=== PATIENT | male | born 1980 | race African-American/Black ===

== ENCOUNTER 2017-04-29 08:25 | Emergency (ER) | payer SELFPAY ==
[~2017-04-29] VITALS: Ht 182.9 cm; Wt 111.1 kg
[2017-04-29 08:30] VITALS: BP 189/106
[2017-04-29] MEDS ORDERED: IBUP-1060 PO (08:38)
[2017-04-29] MEDS ORDERED: HYDR25TA9 PO (08:38)
[2017-04-29] MEDS ORDERED: PENICILLIN G BENZATHINE LA 1,200,000 UNIT/2 ML DISP.SYRIN. IM ONE (08:45)
--- NOTE | 2017-04-29 08:47 | PHYS DOC ---
Past Medical History Past Medical History: Hypertension Past Surgical History: Other Additional Past Surgical Histo: hernia repair Alcohol Use: Occasionally Drug Use: Marijuana Adult General Chief Complaint Chief Complaint: SORE THROAT HPI HPI Patient is a 36 year old male who presents with sore throat. No known fevers or cough, reports pain with swallowing. no known sick contacts. Pt admits to being noncompliant with his blood pressure, HCTZ, for several months. No complaints with regards to elevated blood pressure Review of Systems Review of Systems Constitutional: Denies fever or chills [] Eyes: Denies change in visual acuity, redness, or eye pain [] HENT: Denies nasal congestion Respiratory: Denies cough or shortness of breath [] Cardiovascular: denies chest pain GI: Denies abdominal pain, nausea, vomiting, bloody stools or diarrhea [] : Denies dysuria or hematuria [] Musculoskeletal: Denies back pain or joint pain [] Integument: Denies rash or skin lesions [] Neurologic: Denies headache, focal weakness or sensory changes [] Current Medications Current Medications Current Medications Medications (Trade) Dose Ordered Sig/Alfred Start Time Stop Time Status Last Admin Dose Admin Penicillin G Benzathine (Bicillin L-A) 1,200,000 unit 1X ONCE 04/29/17 08:45 04/29/17 08:46 Allergies Allergies Allergies Coded Allergies Type Severity Reaction Last Updated Verified No Known Drug Allergies 04/29/17 No Physical Exam Physical Exam Constitutional: Well developed, well nourished, no acute distress, non-toxic appearance. [] HENT: Normocephalic, atraumatic, bilateral external ears normal, oropharynx moist, bilateral tonsillar enlargement with exudate and erythema, uvula rises midline, no trismus Eyes: PERRLA, EOMI, conjunctiva normal, no discharge. [] Neck: Normal range of motion, mild bilateral cervical LAD Cardiovascular:Heart rate regular rhythm, no murmur [] Lungs & Thorax: Bilateral breath sounds clear to auscultation [] Extremities: No tenderness, no cyanosis, no clubbing, ROM intact, no edema. [] Neurologic: Alert and oriented X 3, normal motor function, normal sensory function, no focal deficits noted. [] Psychologic: Affect normal, judgement normal, mood normal. [] Current Patient Data Vital Signs Vital Signs Date Time Temp Pulse Resp B/P (MAP) Pulse Ox O2 Delivery O2 Flow Rate FiO2 04/29/17 08:30 98.8 64 18 98 Room Air 98.8 EKG EKG [] Radiology/Procedures Radiology/Procedures [] Course & Med Decision Making Course & Med Decision Making Pertinent Labs and Imaging studies reviewed. (See chart for details) pt given bicillin IM, refilled RX for HCTZ and stressed need for f/u. Referral sheets given and pt counseled on treatments and return precautions. Dragon Disclaimer Dragon Disclaimer This electronic medical record was generated, in whole or in part, using a voice recognition dictation system. Departure Departure Impression: Primary Impression: Strep throat Additional Impression: Elevated blood pressure reading Disposition: HOME, SELF-CARE Condition: STABLE Patient Instructions: Strep Throat, [id number], Form - Excuse from Work, School, or Physical Activity, Hypertension Scripts Hydrochlorothiazide (HYDROCHLOROTHIAZIDE TABLET ) 25 Mg Tablet 1 TAB PO DAILY, #30 TAB 0 Refills Prov: BURAK LOAIZA MD 04/29/17 Ibuprofen (IBUPROFEN) 800 Mg Tablet 800 MG PO PRN TID Y for PAIN, #20 TAB take with food or milk to avoid upsetting stomach Prov: BURAK LOAIZA MD 04/29/17 Problem Qualifiers BURAK LOAIZA MD Apr 29, 2017 08:47
== END 2017-04-29 09:10 | disposition home or self-care (01) ==
LOC: ER 08:25
DX: J02.0 Streptococcal pharyngitis (principal); I10 Essential (primary) hypertension; Z91.19 Patient's noncompliance with other medical treatment and regimen; F12.10 Cannabis abuse, uncomplicated; Z98.890 Other specified postprocedural states
CPT/HCPCS: 96372; 99283; J0561

== ENCOUNTER 2018-07-16 11:05 | Emergency (ER) | payer SELFPAY ==
[~2018-07-16] VITALS: Ht 182.9 cm; Wt 113.4 kg
[~2018-07-16 11:05] MED LIST: HYDR25TA9 PO; IBUP-1060 PO
[2018-07-16 11:20] VITALS: BP 186/104
[2018-07-16] MEDS ORDERED: DIPHTH,PERTUSS(ACELL),TET TOX 0.5 ML DISP.SYRIN. VAX IM ONE (12:15)
[2018-07-16] MEDS ORDERED: LIDOCAINE 1% PF 2 ML VIAL. INJ ONE (12:15)
--- NOTE | 2018-07-16 13:11 | PHYS DOC ---
Past Medical History Past Medical History: Hypertension Past Surgical History: Other Additional Past Surgical Histo: hernia repair Alcohol Use: Occasionally Drug Use: Marijuana Adult General Chief Complaint Chief Complaint: LACERATION/AVULSION HPI HPI Patient is a 38 year old male who presents to the ER with a complaint of R hand laceration after cutting his hand on a piece of glass while washing dishes. He denies any numbness, tingling, loss of sensation, or limited ROM. Currently he rates his pain as a 5 out of 10 on the pain scale. He did not take anything for relief of his pain prior to arrival. Review of Systems Review of Systems Constitutional: Denies fever or chills [] Musculoskeletal: Denies back pain or joint pain [] Integument: Reports laceration to R hand from broken glass. Neurologic: Denies focal weakness or sensory changes [] All other systems were reviewed and found to be within normal limits, except as documented in this note. Current Medications Current Medications Current Medications Medications (Trade) Dose Ordered Sig/Alfred Start Time Stop Time Status Last Admin Dose Admin Diphtheria/ Tetanus/Acell Pertussis (Boostrix) 0.5 ml ONCE ONCE 07/16/18 12:15 07/16/18 12:16 DC 07/16/18 12:22 0.5 ML Lidocaine HCl (Xylocaine-Mpf 1% 2ml Vial) 4 ml 1X ONCE 07/16/18 12:15 07/16/18 12:16 DC Allergies Allergies Allergies Coded Allergies Type Severity Reaction Last Updated Verified No Known Drug Allergies 07/16/18 No Physical Exam Physical Exam Constitutional: Well developed, well nourished, no acute distress, non-toxic appearance. [] HENT: Normocephalic, atraumatic, bilateral external ears normal, nose normal. [] Eyes: PERRLA, conjunctiva normal, no discharge. [] Skin: Warm, dry, no erythema, no rash; 3 cm laceration noted to posterior surface of right 2nd digit. [] Extremities: No tenderness, no cyanosis, no clubbing, ROM intact, no edema. [] Neurologic: Alert and oriented X 3, normal motor function, normal sensory function, no focal deficits noted. [] Psychologic: Affect normal, judgement normal, mood normal. [] Current Patient Data Vital Signs Vital Signs Date Time Temp Pulse Resp B/P (MAP) Pulse Ox O2 Delivery O2 Flow Rate FiO2 07/16/18 11:20 98.2 72 16 186/104 (131) 97 Room Air 98.2 EKG EKG [] Radiology/Procedures Radiology/Procedures [] Course & Med Decision Making Course & Med Decision Making Pertinent Labs and Imaging studies reviewed. (See chart for details) [] Dragon Disclaimer Dragon Disclaimer This electronic medical record was generated, in whole or in part, using a voice recognition dictation system. Departure Departure Impression: Primary Impression: Laceration of index finger without foreign body without damage to nail Disposition: HOME, SELF-CARE Condition: STABLE Referrals: NON,STAFF (PCP) Patient Instructions: Laceration Care, Adult, [id number] Additional Instructions: Keep the area clean and dry. Leave the bandage that was placed in the ER on for the next 24 hours. Then change the bandage twice daily and as needed. Wear the aluminium finger splint until sutures are removed in 10 days. Follow up with your primary care doctor or return to the ER for suture removal. May take tylenol or ibuprofen as needed for pain. Laceration/Wound Repair Laceration/Wound Repair : Wound Location: upper extremity (2nd digit of right hand) Wound's Depth, Shape: superficial Wound Length (cm): 3 Wound Explored: no foreign body removed Irrigated w/ Saline (ccs): 50 Betadine Prep?: Yes Anesthesia: 1% Lidocaine Volume Anesthetic (ccs): 4 Wound Debrided: moderate Wound Repaired With: sutures Suture Size/Type: 4:0 Number of Sutures: 9 Layer Closure?: No Sterile Dressing Applied?: No Splint Applied?: Yes (aluminum finger splint) Sling Applied?: No Problem Qualifiers Primary Impression: Laceration of index finger without foreign body without damage to nail Encounter type: initial encounter Laterality: right Qualified Codes: S61.210A - Laceration without foreign body of right index finger without damage to nail, initial encounter LUTHER MENA SEAMAN Jul 16, 2018 13:11
== END 2018-07-16 13:18 | disposition home or self-care (01) ==
LOC: ER 11:05
DX: S61.210A Laceration without foreign body of right index finger without damage to nail, initial encounter (principal); I10 Essential (primary) hypertension; W25.XXXA Contact with sharp glass, initial encounter; Y93.G1 Activity, food preparation and clean up; Y92.9 Unspecified place or not applicable; Y99.8 Other external cause status
CPT/HCPCS: 12002; 90471; 90715; 99283

== ENCOUNTER 2018-07-26 11:24 | Emergency (ER) | payer SELFPAY ==
[~2018-07-26] VITALS: Ht 182.9 cm; Wt 113.4 kg
[2018-07-26 11:45] VITALS: BP 188/110
--- NOTE | 2018-07-26 12:02 | PHYS DOC ---
Past Medical History Past Medical History: Hypertension Past Surgical History: Other Additional Past Surgical Histo: hernia repair Alcohol Use: Occasionally Drug Use: Marijuana Adult General Chief Complaint Chief Complaint: SUTURE/STAPLE REMOVAL HPI HPI Patient is a 38 year old male who presents for suture removal from the right index finger, sutures have been in for 10 days. Patient denies any issues with the wound healing. Review of Systems Review of Systems Constitutional: Denies fever or chills [] Musculoskeletal: Denies back pain or joint pain [] Integument: suture removal from the right index finger Neurologic: Denies headache, focal weakness or sensory changes [] All other systems were reviewed and found to be within normal limits, except as documented in this note. Allergies Allergies Allergies Coded Allergies Type Severity Reaction Last Updated Verified No Known Drug Allergies 07/26/18 No Physical Exam Physical Exam Constitutional: Well developed, well nourished, no acute distress, non-toxic appearance. [] Skin: Warm, dry, right index finger proximal and dorsal aspect with a well- healed approximated laceration with 9 interrupted sutures, no signs of infection to the area. Back: No tenderness, no CVA tenderness. [] Extremities: No tenderness, no cyanosis, no clubbing, ROM intact, no edema. [] Neurologic: Alert and oriented X 3, normal motor function, normal sensory function, no focal deficits noted. [] Psychologic: Affect normal, judgement normal, mood normal. [] Current Patient Data Vital Signs Vital Signs Date Time Temp Pulse Resp B/P (MAP) Pulse Ox O2 Delivery O2 Flow Rate FiO2 07/26/18 11:45 98.8 64 18 188/110 (136) 95 Room Air 98.8 EKG EKG [] Radiology/Procedures Radiology/Procedures [] Course & Med Decision Making Course & Med Decision Making Pertinent Labs and Imaging studies reviewed. (See chart for details) 9 sutures were removed from patient's laceration site. Laceration site is well approximated, no signs of infection. Return precautions provided. Dragon Disclaimer Dragon Disclaimer This electronic medical record was generated, in whole or in part, using a voice recognition dictation system. Departure Departure Impression: Primary Impression: Visit for suture removal Disposition: 01 HOME, SELF-CARE Condition: STABLE Referrals: NO PCP (PCP) follow up with your doctor in one week as needed Patient Instructions: Suture Removal-Brief Additional Instructions: We removed stitches from your laceration site, keep it clean and dry. Follow-up with your doctor as needed. ENRIQUE BAIG APRN Jul 26, 2018 12:02
== END 2018-07-26 12:13 | disposition home or self-care (01) ==
LOC: ER 11:24
DX: S61.210D Laceration without foreign body of right index finger without damage to nail, subsequent encounter (principal); I10 Essential (primary) hypertension; X58.XXXD Exposure to other specified factors, subsequent encounter
CPT/HCPCS: 99281

== ENCOUNTER 2018-11-25 10:50 | Emergency (ER) | payer SELFPAY ==
[~2018-11-25] VITALS: Ht 182.9 cm; Wt 111.1 kg
[~2018-11-25 10:50] MED LIST changes: +HYDR-2145 PO; -HYDR25TA9 PO
[2018-11-25 11:35] VITALS: BP 172/102
[2018-11-25] MEDS ORDERED: PENICILLIN G BENZATHINE LA 1,200,000 UNIT/2 ML DISP.SYRIN. IM ONE (12:00)
--- NOTE | 2018-11-25 12:28 | PHYS DOC ---
Past Medical History Past Medical History: Hypertension Past Surgical History: Other Additional Past Surgical Histo: hernia repair Alcohol Use: Occasionally Drug Use: Marijuana Adult General Chief Complaint Chief Complaint: SORE THROAT HPI HPI Patient is a 38 year old [f__sex] who presents with [] Review of Systems Review of Systems Constitutional: Denies fever or chills [] Eyes: Denies change in visual acuity, redness, or eye pain [] HENT: Denies nasal congestion or sore throat [] Respiratory: Denies cough or shortness of breath [] Cardiovascular: No additional information not addressed in HPI [] GI: Denies abdominal pain, nausea, vomiting, bloody stools or diarrhea [] : Denies dysuria or hematuria [] Musculoskeletal: Denies back pain or joint pain [] Integument: Denies rash or skin lesions [] Neurologic: Denies headache, focal weakness or sensory changes [] Endocrine: Denies polyuria or polydipsia [] All other systems were reviewed and found to be within normal limits, except as documented in this note. Current Medications Current Medications Current Medications Medications (Trade) Dose Ordered Sig/Alfred Start Time Stop Time Status Last Admin Dose Admin Penicillin G Benzathine (Bicillin L-A) 1,200,000 unit 1X ONCE 11/25/18 12:00 11/25/18 12:01 DC 11/25/18 12:15 1,200,000 UNIT Allergies Allergies Allergies Coded Allergies Type Severity Reaction Last Updated Verified No Known Drug Allergies 07/26/18 No Physical Exam Physical Exam Constitutional: Well developed, well nourished, no acute distress, non-toxic appearance. [] HENT: Normocephalic, atraumatic, bilateral external ears normal, oropharynx moist, no oral exudates, nose normal. [] Eyes: PERRLA, EOMI, conjunctiva normal, no discharge. [] Neck: Normal range of motion, no tenderness, supple, no stridor. [] Cardiovascular:Heart rate regular rhythm, no murmur [] Lungs & Thorax: Bilateral breath sounds clear to auscultation [] Abdomen: Bowel sounds normal, soft, no tenderness, no masses, no pulsatile masses. [] Skin: Warm, dry, no erythema, no rash. [] Back: No tenderness, no CVA tenderness. [] Extremities: No tenderness, no cyanosis, no clubbing, ROM intact, no edema. [] Neurologic: Alert and oriented X 3, normal motor function, normal sensory function, no focal deficits noted. [] Psychologic: Affect normal, judgement normal, mood normal. [] Current Patient Data Vital Signs Vital Signs Date Time Temp Pulse Resp B/P (MAP) Pulse Ox O2 Delivery O2 Flow Rate FiO2 11/25/18 11:35 100.7 81 20 172/102 (125) 98 Room Air 100.7 EKG EKG [] Radiology/Procedures Radiology/Procedures [] Course & Med Decision Making Course & Med Decision Making Pertinent Labs and Imaging studies reviewed. (See chart for details) [] Dragon Disclaimer Dragon Disclaimer This electronic medical record was generated, in whole or in part, using a voice recognition dictation system. Departure Departure Impression: Primary Impression: Pharyngitis Disposition: 01 HOME, SELF-CARE Condition: STABLE Referrals: NO PCP (PCP) Patient Instructions: Sore Throat Additional Instructions: You received a shot of penicillin in the emergency department. This should clear your infection. You may use [id number] pain relievers such as ibuprofen or Tylenol for pain. You may use sore throat spray for comfort. Gargle with salt water. Follow-up with your primary care provider in 3 days if not improving or return to the emergency department if worsening. ARUN RAMIREZ APRN Nov 25, 2018 12:28
== END 2018-11-25 12:40 | disposition home or self-care (01) ==
LOC: ER 10:50
DX: J02.9 Acute pharyngitis, unspecified (principal); I10 Essential (primary) hypertension
CPT/HCPCS: 96372; 99283; J0561

== ENCOUNTER 2021-02-10 15:15 | Emergency (ER) | payer SELFPAY ==
[2020-08-29 04:44] VITALS: BP 164/93
[~2021-02-10 15:15] MED LIST changes: +DICY20TA3 PO
[2021-02-10] MEDS ORDERED: EPINEPHrine VIAL 30 MG/30 ML VIAL ONE (15:58)
[2021-02-10] MEDS ORDERED: EPINEPHrine SYRINGE 1 MG/10 ML SYRINGE ONE (15:58)
[2021-02-10 15:59] LABS: CREATININE ISTAT 1.8 mg/dL (0.5-1.4); ION CA ISTAT 1.25 mmol/L (1.13-1.32); POTASSIUM ISTAT 4.1 mmol/L (3.5-5.0)
[2021-02-10 16:17] LABS: BILIRUBIN,URINE NEGATIVE (NEG); CLARITY,URINE CLEAR; COLOR,URINE YELLOW; NITRITE,URINE NEGATIVE (NEG); PROTEIN,URINE 30 mg/dL (NEG-TRACE); UROBILINOGEN,URINE 0.2 mg/dL (0.2 mg/dL)
[2021-02-10 16:18] LABS: BASO # 0.1 x10^3/uL (0.0-0.2); BASO % 1 % (0-3); EOS # 0.1 x10^3/uL (0.0-0.7); EOS % 1 % (0-3); HEMATOCRIT 47.5 % (39.0-53.0); HEMOGLOBIN 14.7 g/dL (13.0-17.5); LYMPH # 5.4 x10^3/uL (1.0-4.8); LYMPH % 56 % (24-48); MEAN CORPUSCULAR HEMOGLOBIN 28 pg (25-35); MEAN CORPUSCULAR HGB CONC 31 g/dL (31-37); MEAN CORPUSCULAR VOLUME 91 fL (79-100); MONO # 0.5 x10^3/uL (0.0-1.1); MONO % 5 % (0-9); NEUT # 3.6 x10^3/uL (1.8-7.7); NEUT % 37 % (31-73); PLATELET COUNT 201 x10^3/uL (140-400); RED BLOOD COUNT 5.21 x10^6/uL (4.30-5.70); WHITE BLOOD COUNT 9.7 x10^3/uL (4.0-11.0)
[2021-02-10 16:23] LABS: BARBITURATES NEG (NEG); BENZODIAZEPINES NEG (NEG); CANNABINOIDS POS (NEG); COCAINE NEG (NEG); METHADONE NEG (NEG); OPIATES NEG (NEG); PHENCYCLIDINE NEG (NEG)
[2021-02-10 16:26] LABS: AMPHETAMINE/METHAMPHETAMINE NEG (NEG)
[2021-02-10 16:30] LABS: BACTERIA,URINE 0 /HPF (0-FEW); WBC,URINE OCC /HPF (0-4)
[2021-02-10 16:30] LABS: CALCIUM 9.8 mg/dL (8.5-10.1); CREATININE 1.9 mg/dL (0.7-1.3); GFR 47.3; POTASSIUM 4.1 mmol/L (3.5-5.1)
[2021-02-10 16:31] LABS: SPERM,URINE PRESENT /HPF
--- NOTE | 2021-02-10 16:31 | PHYS DOC ---
Past Medical History Past Medical History: Hypertension Past Surgical History: Other Additional Past Surgical Histo: hernia repair Smoking Status: Current Every Day Smoker Alcohol Use: Occasionally Drug Use: Marijuana General Adult EDM: Chief Complaint: ABD PAIN HPI: HPI: HPI/ED course: This is a 40-year-old male who presents to the emergency department today with abdominal pain. The patient was brought in by EMS and met by our nurses when the patient had a seizure and then suddenly went into cardiac arrest. When the patient began having a seizure, I was called into the room. The patient had stopped seizing when I entered the room within 15 seconds. The patient was unresponsive. I felt for a pulse and the patient was pulseless. We initiated CPR immediately and began bagging the patient with a [id number]. See resuscitation recording form for further details. Multipe doses of epinephrine given. PEA arrest which then degenerated into asystole. Patient did have one episode of V. fib that was shocked at approximately 539. On intubation the patient was intubated using video laryngoscopy. Visualization of tube placement directly by video. Unfortunately, we were unable to obtain ROSC. The patient was called at 1620. On final physical examination the patient is unresponsive and motionless without any respiratory movement. There are no heart sounds. Review of Systems: Review of Systems: Unable to be obtained because of the patient's medical condition Heart Score: C/O Chest Pain: N/A Risk Factors: Risk Factors: DM, Current or recent (<one month) smoker, HTN, HLP, family history of CAD, obesity. Risk Scores: Score 0 - 3: 2.5% MACE over next 6 weeks - Discharge Home Score 4 - 6: 20.3% MACE over next 6 weeks - Admit for Clinical Observation Score 7 - 10: 72.7% MACE over next 6 weeks - Early Invasive Strategies Current Medications: Current Medications Medications (Trade) Dose Ordered Sig/Alfred Start Time Stop Time Status Last Admin Dose Admin Epinephrine HCl (Adrenalin) 30 mg STK-MED ONCE 02/10/21 15:58 02/10/21 15:58 DC Epinephrine HCl (EPINEPHrine SYRINGE) 1 mg STK-MED ONCE 02/10/21 15:58 02/10/21 15:58 DC Allergies: Allergies: Allergies Coded Allergies Type Severity Reaction Last Updated Verified No Known Drug Allergies 07/26/18 No Physical Exam: PE: Constitutional: Unresponsive, no signs of trauma HEENT atraumatic pupils nonreactive. Eyes: Non-reactive pupils Neck: No JVD or crepitus Cardiovascular: No pulse Lungs: Crackles bilaterally with bagging Abdomen is soft and nontender without distention. Skin: Mottled Back: Atraumatic Extremities: No pulse. Neuro: Unresponsive Psych: Does not make eye contact Current Patient Data: Labs: Laboratory Tests Test 02/10/21 15:45 02/10/21 15:50 02/10/21 15:54 02/10/21 15:55 Urine Opiates Screen Neg (NEG) Urine Methadone Screen Neg (NEG) Urine Barbiturates Neg (NEG) Urine Phencyclidine Screen Neg (NEG) Urine Amphetamine/Methamphetamine Neg (NEG) Urine Benzodiazepines Screen Neg (NEG) Urine Cocaine Screen Neg (NEG) Urine Cannabinoids Screen Pos (NEG) Urine Ethyl Alcohol Neg (NEG) White Blood Count 9.7 x10^3/uL (4.0-11.0) Red Blood Count 5.21 x10^6/uL (4.30-5.70) Hemoglobin 14.7 g/dL (13.0-17.5) Hematocrit 47.5 % (39.0-53.0) Mean Corpuscular Volume 91 fL (79-100) Mean Corpuscular Hemoglobin 28 pg (25-35) Mean Corpuscular Hemoglobin Concent 31 g/dL (31-37) Red Cell Distribution Width 16.0 % (11.5-14.5) H Platelet Count 201 x10^3/uL (140-400) Neutrophils (%) (Auto) 37 % (31-73) Lymphocytes (%) (Auto) 56 % (24-48) H Monocytes (%) (Auto) 5 % (0-9) Eosinophils (%) (Auto) 1 % (0-3) Basophils (%) (Auto) 1 % (0-3) Neutrophils # (Auto) 3.6 x10^3/uL (1.8-7.7) Lymphocytes # (Auto) 5.4 x10^3/uL (1.0-4.8) H Monocytes # (Auto) 0.5 x10^3/uL (0.0-1.1) Eosinophils # (Auto) 0.1 x10^3/uL (0.0-0.7) Basophils # (Auto) 0.1 x10^3/uL (0.0-0.2) POC Troponin I 0.02 ng/ml (<0.08) POC Hemoglobin 16.0 g/dL (14-18) POC Hematocrit 47 % (37-52) POC Sodium 146 mmol/L (135-145) H POC Potassium 4.1 mmol/L (3.5-5.0) POC Chloride 110 mmol/L (98-110) POC Total CO2 18 mmol/L (23-32) L Anion Gap 23 mmol/L (6-14) H POC Blood Urea Nitrogen 16 mg/dL (8-26) POC Creatinine 1.8 mg/dL (0.5-1.4) H Glucose Level 121 mg/dL (70-99) H POC Ionized Calcium (Pepito) 1.25 mmol/L (1.13-1.32) Laboratory Tests 02/10/21 15:50 Laboratory Tests 02/10/21 15:55 EKG: EKG: [] Radiology/Procedures: Radiology/Procedures: [] Course & Med Decision Making: Course & Med Decision Making Pertinent Labs and Imaging studies reviewed. (See chart for details) [] Dragon Disclaimer: [employer] Disclaimer: This electronic medical record was generated, in whole or in part, using a voice recognition dictation system. Departure Departure Impression: Primary Impression: Cardiopulmonary arrest Referrals: NO PCP (PCP) Critical Care Time Critical care time spent was 50 minutes exclusive of procedures. Time was spent evaluating the patient, ordering the administration of medications, reevaluating the patient, discussing with the admitting provider and documenting. Intubation Procedure Intubation Procedure Intub Indication: Respiratory failure Consent: Unable to give consent due to emergent nature. Medications Used: see nursing note Procedure: The patient was placed in the appropriate position. Intubation was performed using video laryngoscopy with 7.5 endotracheal tube. Secured at 24 at the teeth. Initial confirmation of placement included bilateral breath sounds, tube fogging, adequate chest rise. About 20 min into the code, we were unable to get good end-tidal capnography so we visualized again with video laryngoscopy and visualize the ET tube within the cords. The patient tolerated the procedure well. Complications: none. ARTEM BABB MD Feb 10, 2021 16:31
[2021-02-10 16:33] LABS: ALBUMIN 4.1 g/dL (3.4-5.0); ALBUMIN/GLOBULIN RATIO 1.2 (1.0-1.7); MAGNESIUM 3.2 mg/dL (1.8-2.4); TOTAL BILIRUBIN 0.5 mg/dL (0.2-1.0); TOTAL PROTEIN 7.4 g/dL (6.4-8.2)
== END 2021-02-10 19:10 ==
LOC: ER 15:15
DX: I46.9 Cardiac arrest, cause unspecified (principal); R10.9 Unspecified abdominal pain; I10 Essential (primary) hypertension; F17.200 Nicotine dependence, unspecified, uncomplicated; F12.90 Cannabis use, unspecified, uncomplicated; Z98.890 Other specified postprocedural states
CPT/HCPCS: 31500; 36415; 51702; 80047; 80053; 80307; 81001; 82553; 83690; 83735; 84484; 85025; 92950; 99291